=== PATIENT | female | born 1980 ===

== ENCOUNTER → 2019-04-26 | Outpatient (CLI) | payer BC ==
--- NOTE | 2019-04-26 11:38 | Diagnostic Imaging Report ---
INDICATION: Anatomy scan. TECHNIQUE: Multiple real-time grayscale images were obtained over the gravid uterus. COMPARISON: None. FINDINGS: There is a single live fetus in a breech presentation. heart rate was recorded at 147 beats per minute. Placenta is anterior. Amniotic fluid volume is within normal limits. survey shows bladder and stomach to be unremarkable. There is some questionable mild dilatation of the right renal pelvis measuring up to 8 mm. Follow-up is recommended. brain is unremarkable. There is a four-chamber heart. There is a three-vessel cord with normal insertion. spine is unremarkable. Biometrical measurements are as follows: Biparietal 5.18 cm, age 21 weeks 5 days. Head circumference 19.36 cm, age 21 weeks 5 days. Abdominal circumference 16.64 cm, age 21 weeks 5 days. Femur length 3.59 cm, age 21 weeks 3 days. Sonographic estimate age: 21 weeks 5 days. Sonographic estimated date of delivery: 09/02/2019. Estimated Weight: 423 gm (+/- 63 gm). LMP percentile: 43%. heart rate: 147 beats per minute. number: 1 of 1. IMPRESSION: 1. Single live IUP of 21 weeks 5 days gestational age. Estimated date of confinement sonographically is 09/02/2019. 2. Unremarkable survey apart from mild dilatation of the right renal pelvis. Follow-up could be performed. Dictated by: Dictated on workstation # [id number]
== END ==
LOC: RAD 10:11
PROVIDERS: ATTEND Obstetrics & Gynecology
DX: Z36.89 Encounter for other specified antenatal screening (principal); Z3A.21 21 weeks gestation of pregnancy
CPT/HCPCS: 76805